=== PATIENT | male | born 1955 | race Hispanic/Latino ===

== ENCOUNTER 2017-09-08 11:25 | Emergency (ER) | payer OTHER ==
[2017-09-08] MEDS ORDERED: Piperacillin/Tazobactam 4.5 GM VIAL ONE (12:03)
[2017-09-08 12:12] LABS: Hemoglobin 7.6 g/dL (14.0-18.0); INR-International Normal Ratio 1.8; Mean Corpuscular Hemoglobin 35.2 pg (27.0-31.0); Mean Platelet Volume 7.4 fL (7.4-10.4); PTT 42.4 SEC (22.9-36.1); Platelet Count 80 thou/uL (130-400); Prothrombin Time 20.6 SEC (12.0-14.7); RBC Distribution Width 15.7 % (11.5-14.5); Red Blood Cell (RBC) Count 2.15 mill/uL (4.70-6.10); White Blood Cell (WBC) Count 12.4 thou/uL (4.8-10.8)
--- NOTE | 2017-09-08 12:28 | RAD ---
RADIOGRAPH CHEST 1 VIEW: Date: 09/08/17 Time: 1122 HOURS HISTORY: 62-year-old male with altered mental status. COMPARISON: 12/31/15. FINDINGS: New finding of moderate to large left pleural effusion obscuring the lower half of the left lung. Car diomegaly. Mild haziness of right lower lung zone. Right upper lobe appears grossly clear. No pneumot horax. IMPRESSION: 1. Moderate to large left pleural effusion. 2. Cardiomegaly. MELANIE [] POS: [facility]
[2017-09-08 12:30] LABS: Anisocytosis SLIGHT = 6-15 cells (100X) (0-5/hpf); Band 31 % (5-11); Lymphocytes 1 % (21-51); MDiff Complete? YES; Macrocytosis SLIGHT = 6-15 cells (100X) (0-5/hpf); Monocytes 5 % (0-10); Neutrophil 63 % (42-75); PLT Morphology Comment Appears Decreased
[2017-09-08 12:36] LABS: ALT (SGPT) 18 U/L (8-55); AST (SGOT) 39 U/L (5-34); Albumin 2.2 g/dL (3.4-4.8); Alkaline Phosphatase 108 U/L (40-150); Anion Gap 14 mmol/L (10-20); BUN (Urea Nitrogen) 15 mg/dL (8.4-25.7); Bilirubin, Total 1.3 mg/dL (0.2-1.2); Calc. Creatinine Clearance 0 mL/min (70-130); Calcium 7.3 mg/dL (7.8-10.44); Carbon Dioxide 16 mmol/L (23-31); Chloride 107 mmol/L (98-107); Estimated GFR-MDRD 50; Globulin 3.5 g/dL (2.4-3.5); Glucose 193 mg/dL (80-115); Magnesium 1.3 mg/dL (1.6-2.6); Potassium 4.7 mmol/L (3.5-5.1); Protein, Total 5.7 g/dL (5.8-8.1); Sodium 132 mmol/L (136-145); Troponin I 0.022 ng/mL (< 0.028)
[2017-09-08 13:55] LABS: Bilirubin Negative (Negative); Blood, Urine Moderate (Negative); Clarity CLEAR (Clear); Glucose, Urine (Dipstick) Negative (Negative); Leukocyte Negative (Negative); Nitrite Negative (Negative); Protein, Urine (Dipstick) 30 mg/dL (Neg-Trace); Specific Gravity, Urine 1.015 (1.002-1.036); Urobilinogen 0.2 mg/dL (0.2-1.0); pH, Urine 5.5 (5.0-9.0)
[2017-09-08 13:58] LABS: Bacteria/HPF None Seen HPF (None Seen); Hyaline Casts/LPF 4-6 HYALINE CAST LPF (0-3 Hyaline); Pathc Cast-AUWi Flag 0.87 (0-2.49); Squamous Epithelial 0-3 HPF (0-3); WBC/HPF 0-3 HPF (0-3)
== END 2017-09-08 16:00 ==
LOC: ERS 11:25
DX: A41.9 Sepsis, unspecified organism (principal); J90 Pleural effusion, not elsewhere classified; E11.9 Type 2 diabetes mellitus without complications; I10 Essential (primary) hypertension; B19.20 Unspecified viral hepatitis C without hepatic coma; Z79.4 Long term (current) use of insulin; Z79.899 Other long term (current) drug therapy
CPT/HCPCS: 36415; 71045; 80053; 81003; 81015; 82140; 83605; 83735; 84484; 85025; 85610; 85730; 87040; 87086; 93005; 94760; 96361; 96365; J2543